=== PATIENT | female | born 1955 | race Caucasian/White ===

== ENCOUNTER 2016-08-13 11:42 | Emergency (ER) | payer OTHER ==
[~2016-08-13] VITALS: Ht 157.5 cm; Wt 90.9 kg
[~2016-08-13 11:42] MED LIST: LISI-586 PO; TRAM50 PO
[2016-08-13 11:44] VITALS: BP 198/80; PULSE 95; RESP 17; TEMP 98.1; O2SAT 98
[2016-08-13] MEDS ORDERED: LISI-586 PO (13:26)
[2016-08-13] MEDS ORDERED: ROBA500T PO (13:26)
[2016-08-13] MEDS ORDERED: IBUP800T23 PO (13:26)
--- NOTE | 2016-08-13 13:26 | PD ---
HPI Chief Complaint: Back/ Neck Pain or Injury Time Seen by Provider: 13:23 Travel History International Travel<30 days: No Contact w/Intl Traveler<30days: No Traveled to known affect area: No History of Present Illness HPI 60-year-old female presents to the emergency department with complaint of left lower back pain since yesterday. She has history of chronic low back pain and her symptoms are similar to past exacerbations. She denies injury, fall, strain. She did some work at work that she thinks may have exacerbated her back pain. She denies encopresis, incontinence, saddle anesthesias. Denies paresthesias, loss of sensation, decreased range of motion, decreased strength to all extremities. Denies fever, chills, nausea, vomiting. Denies urinary symptoms. Denies IV drug use. Denies cancer. Took ibuprofen with some relief of pain. Has not taken any other medications or tried any other treatments to alleviate her symptoms. Has history of hypertension. Has been out of her blood pressure Medication for a couple months secondary to losing her insurance. She does have an appointment with Dr. Gr mid August. Says her blood pressure has been high for the past couple months after running out of her medication. Denies chest pain, headache, confusion, blurred vision, nausea, vomiting, shortness of breath. No known allergies. No other modifying factors or associated signs and symptoms. PFSH Past Medical History Cardiovascular Problems: Yes (HYPERTENSION) Diabetes: No Diminished Hearing: No Hypertension: Yes Immunizations Current: Yes Menopausal: Yes : 0 Para: 0 Miscarriage: 0 : 0 Past Surgical History Tonsillectomy: Yes Social History Alcohol Use: Yes (socially) Tobacco Use: No Substance Use: No Allergies-Medications (Allergen,Severity, Reaction): Coded Allergies: No Known Allergies (Unverified , 08/13/16) Reported Meds & Prescriptions Reported Meds & Active Scripts Active Zestoretic (Lisinopril-Hctz) 20-12.5 Mg Tab 1 Tab PO DAILY Ibuprofen 800 Mg Tab 800 Mg PO Q6HR PRN Robaxin (Methocarbamol) 500 Mg Tab 500 Mg PO QID PRN Review of Systems Except as stated in HPI: all other systems reviewed are Neg Physical Exam Narrative GENERAL: Well-nourished, well-developed female patient, in no acute distress SKIN: Warm and dry. HEAD: Atraumatic. Normocephalic. EYES: Pupils equal and round. No scleral icterus. No injection or drainage. ENT: Mucosa pink and moist. Airway patent. NECK: Trachea midline. CARDIOVASCULAR: Regular rate. RESPIRATORY: No accessory muscle use. GASTROINTESTINAL: Rounded. MUSCULOSKELETAL: Bilateral lower extremities supple and non-tense with 2+ pedal pulses and sensory intact; with full range of motion and 5/5 strength. Active dorsiflexion and extension of bilateral feet. 2+ DTRs. Bilateral straight leg raise is negative for low back pain. Ambulatory with normal gait. Sitting up in bed at 90. No obvious deformities. No clubbing. No cyanosis. No edema. BACK: No midline point tenderness on palpation of the lumbar spine. Tenderness on palpation of left iliosacral area. No obvious deformities. NEUROLOGICAL: Awake and alert. Oriented 3. No obvious cranial nerve deficits. Motor grossly within normal limits. Normal speech. Moves all extremities. 5/5 strength to all extremities. Sensory intact. PSYCHIATRIC: Appropriate mood and affect; insight and judgment normal. Data Data Last Documented VS Vital Signs Date Time Temp Pulse Resp B/P Pulse Ox O2 Delivery O2 Flow Rate FiO2 08/13/16 11:44 98.1 95 17 198/80 98 Orders Ketorolac Inj (Toradol Inj) (08/13/16 13:30) Orphenadrine Inj (Norflex Inj) (08/13/16 13:30) [facility] Medical Decision Making Medical Screen Exam Complete: Yes Emergency Medical Condition: Yes Medical Record Reviewed: Yes Differential Diagnosis Acute exacerbation of chronic low back pain, hypertension, medication refill, low back strain Narrative Course 60-year-old female with acute exacerbation of chronic low back pain. Denies new or recent injury. Denies encopresis, incontinence, saddle anesthesias. Denies any drug use. Denies cancer. No reproducible tenderness on palpation of midline lumbar spine. Reproducible tenderness to the left iliosacral area. He has history of hypertension and has been out of her medication for a couple months. She is asymptomatic. She hasn't point with her primary care provider, Dr. Gr, in mid August. She has blood pressures elevated in the ER. I will refill her blood pressure medication. Toradol and Norflex administered in the ER. Ibuprofen, Robaxin, Zestoretic prescribed at home. Patient verbalizes understanding and agreement with treatment plan. Patient is medically cleared and stable for discharge. Discussed reasons to return to the emergency department. Instructed patient to follow up with primary care provider. Patient agrees with treatment plan. The patients vital signs are stable and the patient is stable for outpatient follow-up and treatment. Patient discharged home, stable and in no acute distress. Diagnosis Primary Impression: Acute exacerbation of chronic low back pain Additional Impression: Medication refill Referrals: Primary Care Physician Patient Instructions: Acute Low Back Pain (ED), General Instructions, Hypertension (ED), Medication Refill, ED Departure Forms: Tests/Procedures, Work Release Enter return to work date: Aug 16, 2016 Additional Instructions: Tylenol or ibuprofen as directed and as needed for pain Robaxin as prescribed and as needed for muscle spasms Heating pad and/or ice to affected area to reduce pain Avoid aggravating activities; increase activity as tolerated Follow-up with primary care provider Return to emergency department immediately with worsening of symptoms Med/Other Pt SpecificInfo: Prescription(s) given Scripts Lisinopril-Hctz (Zestoretic)20-12.5 Mg Tab1 Tab PO DAILY #30 TAB Ref 0 Prov:Jennifer Coto 08/13/16 Ibuprofen 800 Mg [id number] Mg PO Q6HR PRN (PAIN) #30 TAB Ref 0 Prov:Jennifer Coto 08/13/16 Methocarbamol (Robaxin)500 Mg [id number] Mg PO QID PRN (MUSCLE SPASM) #30 TAB Ref 0 Prov:Jennifer Coto 08/13/16 Disposition: 01 DISCHARGE HOME Condition: Stable Jennifer Coto Aug 13, 2016 13:26
[2016-08-13] MEDS ORDERED: ORPHENADRINE INJ 60 MG/2 ML AMP IM ONE (13:30)
[2016-08-13] MEDS ORDERED: KETOROLAC TROMETHAMINE 60 MG/2 ML (IM) VIAL IM ONE (13:30)
== END 2016-08-13 14:05 | disposition home or self-care (01) ==
LOC: NEPB 11:42
DX: M54.5 Low back pain (principal); I10 Essential (primary) hypertension
CPT/HCPCS: 96372; 99283; J1885; J2360

== ENCOUNTER 2016-09-07 11:44 | Emergency (ER) | payer OTHER ==
[~2016-09-07] VITALS: Ht 160 cm; Wt 95.0 kg
[~2016-09-07 11:44] MED LIST changes: +IBUP800T23 PO; +ROBA500T PO; -TRAM50 PO
[2016-09-07 11:46] VITALS: BP 181/97; PULSE 72; RESP 20; TEMP 97.6; O2SAT 100
[2016-09-07] MEDS ORDERED: HYDR50TA94 PO (11:59)
[2016-09-07] MEDS ORDERED: PERM5CRE11 TOPICAL (12:18)
--- NOTE | 2016-09-07 12:22 | PD ---
HPI Chief Complaint: Skin Problem Time Seen by Provider: 12:16 Travel History International Travel<30 days: No Contact w/Intl Traveler<30days: No Traveled to known affect area: No History of Present Illness HPI 60-year-old female presents to the emergency Department with complaint of an itchy rash all over her body for approximately 2 weeks or more. Denies new lotions, soaps, detergents, environmental exposures. She started using Robaxin about a month ago with development of symptoms approximately 2 weeks after. She was seen by [employer]. and they told her to stop the Robaxin and gave her Atarax for the itching. She stop the Robaxin and started taking Atarax with no relief of symptoms. She thinks her grandson may have a rash and has been itching also. She denies airway edema, stridor, wheezing, shortness of breath, difficulty breathing. Denies fever, chills, nausea, vomiting. Has an appointment with dermatology on September 30. No known allergies. History of hypertension. Primary care provider is Dr. Gr. No other modifying factors or associated signs and symptoms. PFSH Past Medical History Cardiovascular Problems: Yes (HYPERTENSION) Diabetes: No Diminished Hearing: No Hypertension: Yes Immunizations Current: Yes ?: Not Menopausal: Yes : 0 Para: 0 Miscarriage: 0 : 0 Past Surgical History Tonsillectomy: Yes Social History Alcohol Use: Yes (socially) Tobacco Use: No Substance Use: No Allergies-Medications (Allergen,Severity, Reaction): Coded Allergies: No Known Allergies (Unverified , 08/13/16) Reported Meds & Prescriptions Reported Meds & Active Scripts Active Elimite Topical (Permethrin) 5% Cream 1 Applic TOPICAL ONCE Zestoretic (Lisinopril-Hctz) 20-12.5 Mg Tab 1 Tab PO DAILY Ibuprofen 800 Mg Tab 800 Mg PO Q6HR PRN Robaxin (Methocarbamol) 500 Mg Tab 500 Mg PO QID PRN Reported Hydroxyzine HCl 50 Mg Tab 50 Mg PO QID PRN Review of Systems Except as stated in HPI: all other systems reviewed are Neg Physical Exam Narrative GENERAL: Well-nourished, well-developed female patient, in no acute distress; afebrile, nontoxic-appearing SKIN: Warm and dry. Generalized erythremic pimple-like rash to abdomen, back, bilateral upper and lower extremities; some areas appear excoriated. No areas with cellulitic process noted. HEAD: Atraumatic. Normocephalic. EYES: Pupils equal and round. No scleral icterus. No injection or drainage. ENT: Mucosa pink and moist. Airway patent. NECK: Trachea midline. CARDIOVASCULAR: Regular rate. RESPIRATORY: No accessory muscle use. GASTROINTESTINAL: Obese. MUSCULOSKELETAL: No obvious deformities. No clubbing. No cyanosis. No edema. NEUROLOGICAL: Awake and alert. Oriented 3. No obvious cranial nerve deficits. Motor grossly within normal limits. Normal speech. PSYCHIATRIC: Appropriate mood and affect; insight and judgment normal. Data Data Last Documented VS Vital Signs Date Time Temp Pulse Resp B/P Pulse Ox O2 Delivery O2 Flow Rate FiO2 09/07/16 11:46 97.6 72 20 181/97 100 Room Air MDM Medical Decision Making Medical Screen Exam Complete: Yes Emergency Medical Condition: Yes Medical Record Reviewed: Yes Differential Diagnosis Contact dermatitis, scabies, hives Narrative Course 60-year-old female physical exam consistent with possible scabies rash. Afebrile nontoxic appearing. She denies fever, chills, nausea, vomiting. Elimite cream prescribed for home. Patient has appointment scheduled on September 30 with dermatology and I instructed her to follow-up at that appointment. Patient verbalizes understanding and agreement with treatment plan. Patient is medically cleared and stable for discharge. Discussed reasons to return to the emergency department. Instructed patient to follow up with primary care provider. Patient agrees with treatment plan. The patients vital signs are stable and the patient is stable for outpatient follow-up and treatment. Patient discharged home, stable and in no acute distress. Diagnosis Primary Impression: Scabies Referrals: Manager [employer] Primary Care Physician Patient Instructions: General Instructions, Scabies (ED) Departure Forms: Tests/Procedures, Work Release Enter return to work date: Sep 08, 2016 Additional Instructions: Elimite cream as directed; repeat in one week as needed Soaking in cool water or apply cool, wet washcloths to irritated areas to minimize itching Apply anti-itch creams, such as calamine lotion, to relieve pain and itching as needed [id number] antihistamines as needed and as directed to relieve allergic symptoms caused by scabies Wash all pillows, linens, blankets, etc. in hot water and dry in hot dryer Bag and all unwashable linens, Brandon stuffed animals, etc. in a tightly sealed garbage bag for up to 2 weeks Follow-up with parking cashier Follow-up with primary care provider Return to the emergency department immediately with worsening of symptoms Med/Other Pt SpecificInfo: Prescription(s) given Scripts Permethrin Topical (Elimite Topical)5% Cream1 Applic TOPICAL ONCE #1 TUBE Ref 1 Prov:Jennifer Coto 09/07/16 Disposition: 01 DISCHARGE HOME Condition: Stable Jennifer Coto Sep 07, 2016 12:22
== END 2016-09-07 12:37 | disposition home or self-care (01) ==
LOC: NEPB 11:44
DX: B86 Scabies (principal); I10 Essential (primary) hypertension
CPT/HCPCS: 99282

== ENCOUNTER 2016-10-21 09:55 | Emergency (ER) | payer OTHER ==
[~2016-10-21] VITALS: Ht 157.5 cm; Wt 93.0 kg
[~2016-10-21 09:55] MED LIST changes: +HYDR50TA94 PO; +PERM5CRE11 TOPICAL
[2016-10-21 09:56] VITALS: BP 152/78; PULSE 67; RESP 17; TEMP 98.1; O2SAT 98
[2016-10-21] MEDS ORDERED: SODIUM CHLOR 0.9% 1000 ML INJ 1,000 ML IV SCH (10:26)
[2016-10-21 10:27] VITALS: O2SAT 97
[2016-10-21] MEDS ORDERED: SODIUM CHLORIDE 0.9% FLUSH 10 ML FLUSH IV FLUSH PRN (10:30)
[2016-10-21] MEDS ORDERED: ONDANSETRON HCL 4 MG/2 ML VIAL IVP ONE (10:30)
[2016-10-21] MEDS ORDERED: MORPHINE SULFATE 8 MG/ML INJ IV PUSH ONE (10:30)
[2016-10-21] MEDS ORDERED: DICYCLOMINE HCL 10 MG CAP PO ONE (10:30)
[2016-10-21 10:51] LABS: AUTOMATED NEUTROPHIL # 7.3 TH/MM3 (1.8-7.7); BASOPHIL # 0.1 TH/MM3 (0-0.2); BASOPHIL % 0.5 % (0.0-2.0); EOSINOPHIL # 0.3 TH/MM3 (0-0.4); HEMATOCRIT 41.5 % (35.0-46.0); LYMPH % 13.9 % (9.0-44.0); LYMPHOCYTE # 1.4 TH/MM3 (1.0-4.8); MEAN CORPUSCULAR HEMOGLOBIN 30.5 PG (27.0-34.0); MEAN CORPUSCULAR HGB CONC 33.5 % (32.0-36.0); MONO % 8.9 % (0.0-8.0); NEUT % 73.7 % (16.0-70.0); PLATELET COUNT 247 TH/MM3 (150-450); RED BLOOD COUNT 4.55 MIL/MM3 (4.00-5.30); RED CELL DISTRIBUTION WIDTH 13.6 % (11.6-17.2)
--- NOTE | 2016-10-21 10:54 | PD ---
HPI Chief Complaint: GI Complaint Time Seen by Provider: 10:09 Travel History International Travel<30 days: No Contact w/Intl Traveler<30days: No Traveled to known affect area: No History of Present Illness HPI 60-year-old female arrives complaining of sharp abdomen pain since last night. She had diaphoresis last night as well. She reports multiple episodes of bloody diarrhea throughout the course of the night. It is especially painful in the right lower abdomen. She's had no fever or vomiting. No similar prior episode. Last oral intake was grilled cheese. PFSH Past Medical History Cardiovascular Problems: Yes (HYPERTENSION) Diabetes: No Diminished Hearing: No Gastrointestinal Disorders: Yes (GI bleed 09/2016) Hypertension: Yes Immunizations Current: Yes ?: Not Menopausal: Yes : 0 Para: 0 Miscarriage: 0 : 0 Past Surgical History Surgical History: No Previous Surgery Tonsillectomy: Yes Social History Alcohol Use: Yes (socially) Tobacco Use: No Substance Use: No Allergies-Medications (Allergen,Severity, Reaction): Coded Allergies: No Known Allergies (Unverified , 10/21/16) Reported Meds & Prescriptions Reported Meds & Active Scripts Active Lortab (Hydrocodone-Acetaminophen) 5-325 Mg Tab 1 Tab PO Q6H PRN Flagyl (Metronidazole) 500 Mg Tab 500 Mg PO TID 10 Days Cipro (Ciprofloxacin HCl) 500 Mg Tab 500 Mg PO BID 10 Days Zestoretic (Lisinopril-Hctz) 20-12.5 Mg Tab 1 Tab PO DAILY Review of Systems Except as stated in HPI: all other systems reviewed are Neg General / Constitutional: No: Fever Gastrointestinal: Positive: Diarrhea, Abdominal Pain Physical Exam Narrative GENERAL: 60-year-old female well-nourished well-developed SKIN: Focused skin assessment warm/dry. HEAD: Atraumatic. Normocephalic. EYES: Pupils equal and round. No scleral icterus. No injection or drainage. ENT: No nasal bleeding or discharge. Mucous membranes pink and moist. NECK: Trachea midline. No JVD. CARDIOVASCULAR: Regular rate and rhythm. No murmur appreciated. RESPIRATORY: No accessory muscle use. Clear to auscultation. Breath sounds equal bilaterally. GASTROINTESTINAL: Diffuse tenderness. Soft. MUSCULOSKELETAL: No obvious deformities. No clubbing. No cyanosis. No edema. NEUROLOGICAL: Awake and alert. No obvious cranial nerve deficits. Motor grossly within normal limits. Normal speech. PSYCHIATRIC: Appropriate mood and affect; insight and judgment normal. Data Data Last Documented VS Vital Signs Date Time Temp Pulse Resp B/P Pulse Ox O2 Delivery O2 Flow Rate FiO2 10/21/16 12:50 60 20 139/64 98 Room Air 10/21/16 09:56 98.1 Vital signs reviewed Orders Complete Blood Count With Diff (10/21/16 10:26) Comprehensive Metabolic Panel (10/21/16 10:26) Lipase (10/21/16 10:26) Lactic Acid (10/21/16 10:26) Ct Abd/Pel W Iv Contrast(Rout) (10/21/16 10:26) Iv Access Insert/Monitor (10/21/16 10:26) Ecg Monitoring (10/21/16 10:26) Oximetry (10/21/16 10:26) Ondansetron Inj (Zofran Inj) (10/21/16 10:30) Sodium Chlor 0.9% 1000 Ml Inj (Ns 1000 M (10/21/16 10:26) Sodium Chloride 0.9% Flush (Ns Flush) (10/21/16 10:30) Dicyclomine (Bentyl) (10/21/16 10:30) Morphine Inj (Morphine Inj) (10/21/16 10:30) Urinalysis - C+S If Indicated (10/21/16 11:38) Iohexol 350 Inj (Omnipaque 350 Inj) (10/21/16 12:26) Ciprofloxacin (Cipro) (10/21/16 13:00) Metronidazole (Flagyl) (10/21/16 13:00) Labs Laboratory Tests Test 10/21/16 10/21/16 10:34 11:52 White Blood Count 10.0 TH/MM3 Red Blood Count 4.55 MIL/MM3 Hemoglobin 13.9 GM/DL Hematocrit 41.5 % Mean Corpuscular Volume 91.0 FL Mean Corpuscular Hemoglobin 30.5 PG Mean Corpuscular Hemoglobin 33.5 % Concent Red Cell Distribution Width 13.6 % Platelet Count 247 TH/MM3 Mean Platelet Volume 9.3 FL Neutrophils (%) (Auto) 73.7 % Lymphocytes (%) (Auto) 13.9 % Monocytes (%) (Auto) 8.9 % Eosinophils (%) (Auto) 3.0 % Basophils (%) (Auto) 0.5 % Neutrophils # (Auto) 7.3 TH/MM3 Lymphocytes # (Auto) 1.4 TH/MM3 Monocytes # (Auto) 0.9 TH/MM3 Eosinophils # (Auto) 0.3 TH/MM3 Basophils # (Auto) 0.1 TH/MM3 CBC Comment AUTO DIFF Differential Comment AUTO DIFF CONFIRMED Sodium Level 138 MEQ/L Potassium Level 4.5 MEQ/L Chloride Level 105 MEQ/L Carbon Dioxide Level 26.3 MEQ/L Anion Gap 7 MEQ/L Blood Urea Nitrogen 11 MG/DL Creatinine 0.86 MG/DL Estimat Glomerular Filtration 67 ML/MIN Rate Random Glucose 90 MG/DL Lactic Acid Level 1.3 mmol/L Calcium Level 9.1 MG/DL Total Bilirubin 1.1 MG/DL Aspartate Amino Transf 25 U/L (AST/SGOT) Alanine Aminotransferase 16 U/L (ALT/SGPT) Alkaline Phosphatase 80 U/L Total Protein 7.4 GM/DL Albumin 3.6 GM/DL Lipase 112 U/L Urine Color YELLOW Urine Turbidity HAZY Urine pH 6.5 Urine Specific [place] 1.019 Urine Protein TRACE mg/dL Urine Glucose (UA) NEG mg/dL Urine Ketones NEG mg/dL Urine Occult Blood SMALL Urine Nitrite NEG Urine Bilirubin NEG Urine Urobilinogen LESS THAN 2.0 MG/DL Urine Leukocyte Esterase SMALL Urine RBC 2 /hpf Urine WBC 1 /hpf Urine Squamous Epithelial 3 /hpf Cells Urine Bacteria RARE /hpf Urine Mucus FEW /lpf Microscopic Urinalysis Comment CULT NOT INDICATED MDM Medical Decision Making Medical Screen Exam Complete: Yes Emergency Medical Condition: Yes Medical Record Reviewed: Yes Differential Diagnosis Gastritis, pancreatitis, appendicitis, acute cholecystitis, ascending cholangitis, AAA, perforated viscous, mesenteric ischemia, hepatitis, cystitis, hydronephrosis/hydroureter/nephroureter calculus, mesenteric adenitis, biliary colic Narrative Course CBC & BMP Diagram 10/21/16 10:34 LFTs: normal Lipase: normal LA: 1.3 Last 24 hours Impressions Abdomen/Pelvis CT 10/21/16 1026 Signed Impressions: Service Date/Time: Friday, October 21, 2016 12:11 - CONCLUSION: 1. Descending colon colitis. 2. Sigmoid diverticulosis. 3. Fat containing umbilical hernia. 4. Left renal cyst and nonobstructing left renal calculus. 5. Indeterminate low-density liver lesions are incompletely characterized on this study. Buck Singh MD Liver lesions d/w patient who agrees to follow up with Dr Weir. Return precautions discussed. Cipro/Flagyl/Lortab script. Diagnosis Primary Impression: Colitis Referrals: Ranjeet Gr III, MD call for appointment Additional Instructions: You have a choice when it comes to health care, and we are glad that you chose [facility]. Hopefully, we have met your expectations on today's visit. You are welcome to return to [facility] at any time, as we are committed to meeting the health care needs of our community. Med/Other Pt SpecificInfo: Prescription(s) given Scripts Hydrocodone-Acetaminophen (Lortab)5-325 Mg Tab1 Tab PO Q6H PRN (PAIN SCALE 6 TO 10) #12 TAB Ref 0 Prov:Kyle Nova MD 10/21/16 Metronidazole (Flagyl)500 Mg [id number] Mg PO TID 10 Days Ref 0 Prov:Kyle Nova MD 10/21/16 Ciprofloxacin (Cipro)500 Mg [id number] Mg PO BID 10 Days Ref 0 Prov:Kyle Nova MD 10/21/16 Disposition: 01 DISCHARGE HOME Condition: Stable Kyle Nova MD Oct 21, 2016 10:54
[2016-10-21 10:56] LABS: HEMO FLAGS AUTO DIFF
[2016-10-21 11:12] LABS: ALKALINE PHOSPHATASE 80 U/L (45-117); TOTAL BILIRUBIN ADULT 1.1 MG/DL (0.2-1.0)
[2016-10-21 11:25] LABS: SCAN/DIFF AUTO DIFF CONFIRMED
[2016-10-21 11:28] LABS: ALT (GPT) 16 U/L (10-53); ANION GAP 7 MEQ/L (5-15); BICARBONATE 26.3 MEQ/L (21.0-32.0); BLOOD UREA NITROGEN 11 MG/DL (7-18); CHLORIDE 105 MEQ/L (98-107); GLOMERULAR FILTRATION RATE 67 ML/MIN (>89); SODIUM (NA) 138 MEQ/L (136-145)
[2016-10-21 11:29] LABS: AST (GOT) 25 U/L (15-37); POTASSIUM 4.5 MEQ/L (3.5-5.1)
[2016-10-21 12:22] LABS: BACTERIA, URINE RARE /hpf; BLOOD, URINE SMALL (NEG); COMMENT (UR) CULT NOT INDICATED; CULTURE IF INDICATED CULT NOT INDICATED; GLUCOSE,URINE NEG (NEG); KETONE, URINE NEG (NEG); MUCUS URINE FEW /lpf (OCC); NITRITE,URINE NEG (NEG); PH, URINE 6.5 (5.0-8.5); SQUAMOUS EPITHELIAL CELL URINE 3 /hpf (0-5); URINE COLOR YELLOW (YELLW/STRAW)
[2016-10-21] MEDS ORDERED: IOHEXOL 350 MG/ML 10 ML VIAL (for RAD DIAG) IV ONE (12:26)
--- NOTE | 2016-10-21 12:38 | RADRPT ---
EXAM DATE/TIME: 10/21/2016 12:11 [place] COMPARISON: No previous studies available for comparison. INDICATIONS : Diffuse abdominal pain and bloody stool. IV CONTRAST: 100 cc Omnipaque 350 (iohexol) IV ORAL CONTRAST: No oral contrast ingested. RADIATION DOSE: 15.66 CTDIvol (mGy) MEDICAL HISTORY : Cardiovascular disease. Hypertension. Gastrointestinal bleed. SURGICAL HISTORY : None. ENCOUNTER: Initial ACUITY: 1 day PAIN SCALE: 3/10 LOCATION: Bilateral upper quadrant TECHNIQUE: Volumetric scanning of the abdomen and pelvis was performed. Using automated exposure control and ad justment of the mA and/or kV according to patient size, radiation dose was kept as low as reasonably achievable to obtain optimal diagnostic quality images. FINDINGS: There is a small hiatal hernia identified. There is a low attenuation lesion in the left lobe of the liver lateral segment measuring 1.3 cm which is incompletely characterized on this study. In addition a 5.5 mm low density focus in the right lobe is present, incompletely characterized. Gallbladder, sp mi, pancreas, left adrenal gland unremarkable. There is a small cyst at the lower pole left kidney measuring 1.3 cm and a nonobstructing left lower pole calculus measuring 5.3 mm. Right kidney unremar kable. There is a mass involving the medial limb of the right adrenal gland measuring 2.2 cm on image 23. Atherosclerotic calcifications of the aorta and iliac vessels are seen. Fat containing umbilical hernia. Uterus and ovaries are unremarkable. Diverticulosis of the sigmoid colon is noted. There is circumferential bowel wall thickening involving the descending colon extending from just distal to th e splenic flexure to the sigmoid/descending colon junction at least 25 cm. There is mild adjacent fat stranding. This is characteristic of colitis. Lung bases are clear. Osseous structures are intact. CONCLUSION: 1. Descending colon colitis. 2. Sigmoid diverticulosis. 3. Fat containing umbilical hernia. 4. Left renal cyst and nonobstructing left renal calculus. 5. Indeterminate low-density liver lesions are incompletely characterized on this study. Buck Singh MD on October 21, 2016 at 12:33 Board Certified Radiologist. This report was verified electronically.
[2016-10-21] MEDS ORDERED: CIPR-9 PO (12:47)
[2016-10-21] MEDS ORDERED: HYDR-3533 PO (12:47)
[2016-10-21] MEDS ORDERED: METR-1 PO (12:47)
[2016-10-21 12:50] VITALS: BP 139/64; PULSE 60; RESP 20; O2SAT 98
[2016-10-21] MEDS ORDERED: CIPROFLOXACIN 500 MG TAB PO ONE (13:00)
[2016-10-21] MEDS ORDERED: metroNIDAZOLE 500 MG TAB PO ONE (13:00)
== END 2016-10-21 13:12 | disposition home or self-care (01) ==
LOC: NEPC 09:55
DX: K52.9 Noninfective gastroenteritis and colitis, unspecified (principal); I10 Essential (primary) hypertension; R61 Generalized hyperhidrosis; Z86.79 Personal history of other diseases of the circulatory system; Z87.19 Personal history of other diseases of the digestive system
CPT/HCPCS: 74177; 80053; 81001; 83605; 83690; 85025; 96361; 96374; 96375; 99285; J2270; J2405; J7030; Q9967

== ENCOUNTER 2016-11-14 16:59 | Observation (INO) | payer SELFPAY ==
[~2016-11-14] VITALS: Ht 157.5 cm; Wt 95.0 kg
[2016-11-14] VITALS (9 sets, daily range): BP systolic 144–199; BP diastolic 71–95; PULSE 67–110; RESP 17–20; TEMP 97.5–98.4; O2SAT 96–100
[~2016-11-14 16:59] MED LIST changes: +CIPR-9 PO; +HYDR-3533 PO; -HYDR50TA94 PO; -IBUP800T23 PO; +METR-1 PO; -PERM5CRE11 TOPICAL; -ROBA500T PO
[2016-11-14] MEDS ORDERED: ASPIRIN 325 MG TAB PO ONE (17:15)
[2016-11-14] MEDS ORDERED: LORazepam 2 MG/ML VIAL IV PUSH ONE (17:30)
[2016-11-14 17:41] LABS: AUTOMATED NEUTROPHIL # 4.8 TH/MM3 (1.8-7.7); BASOPHIL % 0.5 % (0.0-2.0); EOSINOPHIL # 0.3 TH/MM3 (0-0.4); EOSINOPHIL % 3.4 % (0.0-4.0); HEMATOCRIT 41.2 % (35.0-46.0); HEMO FLAGS DIFF FINAL; LYMPH % 23.4 % (9.0-44.0); LYMPHOCYTE # 1.8 TH/MM3 (1.0-4.8); MEAN CELL VOLUME 92.8 FL (80.0-100.0); MEAN CORPUSCULAR HEMOGLOBIN 29.9 PG (27.0-34.0); MEAN CORPUSCULAR HGB CONC 32.2 % (32.0-36.0); MONO % 11.5 % (0.0-8.0); NEUT % 61.2 % (16.0-70.0); PLATELET COUNT 246 TH/MM3 (150-450); RED BLOOD COUNT 4.44 MIL/MM3 (4.00-5.30); RED CELL DISTRIBUTION WIDTH 13.5 % (11.6-17.2); WHITE BLOOD COUNT 7.8 TH/MM3 (4.0-11.0)
--- NOTE | 2016-11-14 17:47 | PD ---
HPI Chief Complaint: Cardiac Complaint Time Seen by Provider: 17:43 Travel History International Travel<30 days: No Contact w/Intl Traveler<30days: No Traveled to known affect area: No History of Present Illness HPI 61-year-old female that presents to the ED for evaluation of chest pain. Per patient she's had left-sided chest pain for about an hour ago. Per patient she kind of argument with her daughter and this is what seemed to bring the pain. Per patient the pain is constant. Sharp. It is 8 out of 10. She denies any history of heart disease. She denies ever having chest pain like this before. Per patient she feels somewhat short of breath. Denies any recent travel. No trauma. No fevers chills or sweats. She denies taking anything for this. She came here immediately after the symptoms started. She denies any history of panic attacks. She states that the pain does not radiate. No abdominal pain. Nausea or vomiting. No allergies to medication. No other medical issues at this time. She does have a history of hypertension. PFSH Past Medical History Cardiovascular Problems: Yes (HYPERTENSION) Diabetes: No Diminished Hearing: No Gastrointestinal Disorders: Yes (GI bleed 09/2016) Hypertension: Yes Immunizations Current: Yes Tetanus Vaccination: < 5 Years Influenza Vaccination: Yes Menopausal: Yes : 0 Para: 0 Miscarriage: 0 : 0 Past Surgical History Tonsillectomy: Yes Social History Alcohol Use: No Tobacco Use: No Substance Use: No Allergies-Medications (Allergen,Severity, Reaction): Coded Allergies: No Known Allergies (Unverified , 10/21/16) Reported Meds & Prescriptions Reported Meds & Active Scripts Active Zestoretic (Lisinopril-Hctz) 20-12.5 Mg Tab 1 Tab PO DAILY Review of Systems Except as stated in HPI: all other systems reviewed are Neg Physical Exam Narrative GENERAL: SKIN: Warm and dry. HEAD: Atraumatic. Normocephalic. EYES: Pupils equal and round. No scleral icterus. No injection or drainage. ENT: No nasal bleeding or discharge. Mucous membranes pink and moist. Tongue is midline. No uvula deviation. NECK: Trachea midline. No JVD. CARDIOVASCULAR: Regular rate and rhythm. No murmurs, S3, S4. RESPIRATORY: No accessory muscle use. Clear to auscultation. Breath sounds equal bilaterally. GASTROINTESTINAL: Abdomen soft, non-tender, nondistended. Hepatic and splenic margins not palpable. MUSCULOSKELETAL: Extremities without clubbing, cyanosis, or edema. No obvious deformities. Full range of motion of the upper and lower extremities bilaterally. 2+ pulses bilaterally. NEUROLOGICAL: Awake and alert. No obvious cranial nerve deficits. Motor grossly within normal limits. Five out of 5 muscle strength in the arms and legs. Normal speech. PSYCHIATRIC: Appropriate mood and affect; insight and judgment normal. Data Data Last Documented VS Vital Signs Date Time Temp Pulse Resp B/P Pulse Ox O2 Delivery O2 Flow Rate FiO2 11/14/16 19:05 71 20 161/71 100 Room Air 11/14/16 17:01 98.4 Orders Electrocardiogram (11/14/16 17:13) Basic Metabolic Panel (Bmp) (11/14/16 17:13) Ckmb (Isoenzyme) Profile (11/14/16 17:13) Complete Blood Count With Diff (11/14/16 17:13) Magnesium (Mg) (11/14/16 17:13) Prothrombin Time / Inr (Pt) (11/14/16 17:13) Act Partial Throm Time (Ptt) (11/14/16 17:13) Troponin I (11/14/16 17:13) Chest, Single Ap (11/14/16 17:13) Ecg Monitoring (11/14/16 17:13) Bilateral Bp Monitoring (11/14/16 17:13) Iv Access Insert/Monitor (11/14/16 17:13) Oximetry (11/14/16 17:13) Oxygen Administration (11/14/16 17:13) Aspirin (Aspirin) (11/14/16 17:15) Lorazepam Inj (Ativan Inj) (11/14/16 17:30) Labs Laboratory Tests Test 11/14/16 17:25 White Blood Count 7.8 TH/MM3 Red Blood Count 4.44 MIL/MM3 Hemoglobin 13.3 GM/DL Hematocrit 41.2 % Mean Corpuscular Volume 92.8 FL Mean Corpuscular Hemoglobin 29.9 PG Mean Corpuscular Hemoglobin 32.2 % Concent Red Cell Distribution Width 13.5 % Platelet Count 246 TH/MM3 Mean Platelet Volume 8.9 FL Neutrophils (%) (Auto) 61.2 % Lymphocytes (%) (Auto) 23.4 % Monocytes (%) (Auto) 11.5 % Eosinophils (%) (Auto) 3.4 % Basophils (%) (Auto) 0.5 % Neutrophils # (Auto) 4.8 TH/MM3 Lymphocytes # (Auto) 1.8 TH/MM3 Monocytes # (Auto) 0.9 TH/MM3 Eosinophils # (Auto) 0.3 TH/MM3 Basophils # (Auto) 0.0 TH/MM3 CBC Comment DIFF FINAL Differential Comment Prothrombin Time 10.4 SEC Prothromb Time International 0.9 RATIO Ratio Activated Partial 24.8 SEC Thromboplast Time Sodium Level 140 MEQ/L Potassium Level 4.0 MEQ/L Chloride Level 106 MEQ/L Carbon Dioxide Level 26.6 MEQ/L Anion Gap 7 MEQ/L Blood Urea Nitrogen 16 MG/DL Creatinine 0.97 MG/DL Estimat Glomerular Filtration 58 ML/MIN Rate Random Glucose 97 MG/DL Calcium Level 8.9 MG/DL Magnesium Level 2.3 MG/DL Total Creatine Kinase 79 U/L Troponin I LESS THAN 0.02 NG/ML MDM Medical Decision Making Medical Screen Exam Complete: Yes Emergency Medical Condition: Yes Medical Record Reviewed: Yes Interpretation(s) EKG shows sinus rhythm with no sign of acute ischemia or arrhythmia read by me and attending. CBC & BMP Diagram 11/14/16 17:25 troponin and CKMB negative Last Impressions Chest X-Ray 11/14/16 1713 Signed Impressions: Service Date/Time: Monday, November 14, 2016 17:24 - CONCLUSION: No acute disease. Kurt Roberts MD Differential Diagnosis Chest pain versus acute on chronic chest pain versus a typical chest pain versus ACS versus anxiety versus stress Narrative Course 61-year-old female that presents to the ED for evaluation of chest pain. Patient was properly examined and was found to have signs and symptoms concerning for possible ACS. Labs and imaging ordered. Patient was given aspirin. Patient was also given Ativan as I do believe there may be an anxiety component to this she does appear to be in some distress. Labs and imaging came back essentially unremarkable. Case discussed with my attending who agrees with plan. Patient does have risk factors including age and hypertension with no previous chest pain workup. This was offered to the patient. She agrees to admission to [facility]. Patient was admitted. Procedures EKG Prior to Arrival: No Diagnosis Primary Impression: Chest pain in adult Admitting Information Admitting Physician Requests: Observation Martin Rice November 14, 2016 17:47
[2016-11-14 17:48] LABS: APTT (PATIENT) 24.8 SEC (24.3-30.1); INTERNATIONAL NORMALIZED RATIO 0.9 RATIO; PROTHROMBIN TIME - PATIENT 10.4 SEC (9.8-11.6)
--- NOTE | 2016-11-14 17:49 | RADRPT ---
EXAM DATE/TIME: 11/14/2016 17:24 [facility] COMPARISON: CHEST SINGLE AP, March 01, 2013, 20:07. INDICATIONS : Chest pain sudden onset. MEDICAL HISTORY : Cardiovascular disease. Hypertension. Gastrointestinal bleed. SURGICAL HISTORY : None. ENCOUNTER: Initial ACUITY: 1 day PAIN SCORE: 6/10 LOCATION: Bilateral chest FINDINGS: A single view of the chest demonstrates the lungs to be symmetrically aerated without evidence of mas s, infiltrate or effusion. The cardiomediastinal contours are unremarkable. Osseous structures are intact. CONCLUSION: No acute disease. Kurt Roberts MD on November 14, 2016 at 17:47 Board Certified Radiologist. This report was verified electronically.
[2016-11-14 17:55] LABS: ANION GAP 7 MEQ/L (5-15); BICARBONATE 26.6 MEQ/L (21.0-32.0); BLOOD UREA NITROGEN 16 MG/DL (7-18); CHLORIDE 106 MEQ/L (98-107); GLOMERULAR FILTRATION RATE 58 ML/MIN (>89); MAGNESIUM 2.3 MG/DL (1.5-2.5); SODIUM (NA) 140 MEQ/L (136-145)
[2016-11-14 18:07] LABS: CREATINE KINASE 79 U/L (26-192)
[2016-11-14] MEDS ORDERED: SODIUM CHLORIDE 0.9% FLUSH 10 ML FLUSH IV FLUSH PRN (19:30)
[2016-11-14] MEDS ORDERED: ACETAMINOPHEN/HYDROcodone 325 MG/7.5 MG TAB PO PRN (19:30)
[2016-11-14] MEDS ORDERED: ACETAMINOPHEN 500 MG CPLT PO PRN (19:30)
--- NOTE | 2016-11-14 19:45 | EKG ---
Date Performed: 11/14/2016 Time Performed: 17:15:03 PTAGE: 61 years EKG: Sinus rhythm NORMAL ECG PREVIOUS TRACING : 06/06/2015 12.01 Compared to prior tracing no significant change DOCTOR: Mena Patten Interpretating Date/Time 11/14/2016 19:45:17
[2016-11-14 20:25] LABS: CREATINE KINASE 78 U/L (26-192)
[2016-11-14] MEDS: SODIUM CHLORIDE 0.9% FLUSH 10 ML FLUSH IV FLUSH SCH (21:00)
[2016-11-14 23:58] LABS: CREATINE KINASE 73 U/L (26-192)
[2016-11-15 04:44] VITALS: BP 133/72; PULSE 58; RESP 20; O2SAT 99
[2016-11-15 08:05] VITALS: PULSE 62
[2016-11-15 08:32] VITALS: BP 133/81; PULSE 65; RESP 16; TEMP 97.7; O2SAT 99
[2016-11-15] MEDS ORDERED: REGADENOSON INJ 0.4 MG/5 ML SYR ONE (09:22)
[2016-11-15] MEDS ORDERED: NITROGLYCERIN 0.4 MG SL 25 TABS/BTL SL PRN (09:45)
[2016-11-15] MEDS ORDERED: ONDANSETRON HCL 4 MG/2 ML VIAL IV PRN (09:45)
--- NOTE | 2016-11-15 09:47 | HHI.HP ---
HPI Primary Care Physician Jacque Gr MD Chief Complaint Chest pain History of Present Illness 61-year-old female with history of hypertension presents to the emergency room for further evaluation of chest pain. Onset last evening when arguing with her daughter. Location left anterior chest. Described sharp and pressure. No radiation of pain. Associated symptoms included shortness of breath. No nausea , vomiting, or diaphoresis. Duration has been constant throughout evening. Breathing makes pain worse. No particular movements or position make pain better or worse. Precipitating factors arguing with daughter. Relieving factors unknown. Denies previous chest pain in the past. She has never had formal cardiac testing. Review of Systems General: No fatigue,weakness, fever, chills, recent illness, or change in appetite HEENT: No COSTA, no vision changes CV: As stated above. Denies any current chest pain or pressure. No palpitations or dizziness RESP: No SOB, cough, wheeze, or URI GI: No nausea, vomiting, bowel changes, diarrhea, constipation, pain, distention , or blood in the stool. : No dysuria, urgency, frequency EXT: No lower leg edema, no paraesthesias MS: Chronic back discomfort since July 2016. States she is currently under Workmen's Comp. due to back injury. Back discomfort is unchanged in nature. No change in ROM. NEURO: No change in memory, dizziness, difficulty with balance, LOC, motor/ sensory deficits PSYCH: No anxiety, depression. Endorses recent situational stress regarding arguing with her daughter. SKIN: No rashes, no concerning lesions Past Family Social History Allergies: Coded Allergies: No Known Allergies (Unverified , 10/21/16) Past Medical History Hypertension, GI bleed 09/2016 Past Surgical History Tonsillectomy Reported Medications Active Zestoretic (Lisinopril-Hctz) 20-12.5 Mg Tab 1 Tab PO DAILY Active Ordered Medications Current Medications Medications (Trade) Dose Ordered Sig/Dionicio Route Start Time Stop Time Status Last Admin (Tylenol) 500 mg Q4H PRN PO 11/14/16 19:30 (Victoria 7.5-325 Mg) 1 tab Q4H PRN PO 11/14/16 19:30 11/14/16 19:56 Family History Noncontributory for early onset cardiovascular disease. Social History Known hypertension. No known diabetes or hyperlipidemia. Lifelong nonsmoker. Denies any alcohol or illegal drug use. Reports sedentary lifestyle since injury to her back July 2016. Past cardiac testing No formal cardiac testing. Physical Exam Vital Signs Vital Signs Date Time Temp Pulse Resp B/P Pulse Ox O2 Delivery O2 Flow Rate FiO2 11/15/16 08:32 97.7 65 16 133/81 99 11/15/16 04:44 58 20 133/72 99 11/14/16 23:31 98.0 67 20 158/78 97 11/14/16 23:01 70 11/14/16 21:36 97.5 70 20 193/83 97 11/14/16 21:25 16 11/14/16 19:57 75 20 166/75 96 Room Air 11/14/16 19:55 96 11/14/16 19:05 71 20 161/71 100 Room Air 11/14/16 17:50 81 18 144/75 99 Room Air 11/14/16 17:24 84 11/14/16 17:24 20 98 11/14/16 17:24 99 Room Air 11/14/16 17:24 84 20 173/82 99 Room Air 11/14/16 17:01 98.4 110 17 199/95 99 Physical Exam GENERAL: Alert WN, WD, NAD, pleasant, , obese female HEAD: NC, AT EYES: Sclera clear, conjunctiva without injection, pupils equal and round CV: RRR, without murmur, rub, gallop, no JVD, S1-S2 no S3-S4. RESP: Clear lungs throughout bilateral, no crackles, wheeze, rhonchi, symmetrical chest rise, nonlabored, able to speak in full sentences ABD: Soft, NT, ND, no masses, positive bowel tones, obese BACK: No CVAT, no scoliosis EXT: Pulses +24, no dependent edema MS: Normal tone 4 extremities, nontender, no obvious deformities, full range of motion NEURO: CN II through CN XII grossly intact, motor strength 5/5, gait WNL PSYCH: A+O 3, pleasant affect, appropriate speech, appropriate mood and affect , insight and judgment SKIN: Normal turgor, normal texture, no lesions, no rashes, even hair distribution Laboratory Laboratory Tests Test 11/14/16 11/14/16 11/14/16 17:25 19:30 23:15 White Blood Count 7.8 Red Blood Count 4.44 Hemoglobin 13.3 Hematocrit 41.2 Mean Corpuscular Volume 92.8 Mean Corpuscular Hemoglobin 29.9 Mean Corpuscular Hemoglobin 32.2 Concent Red Cell Distribution Width 13.5 Platelet Count 246 Mean Platelet Volume 8.9 Neutrophils (%) (Auto) 61.2 Lymphocytes (%) (Auto) 23.4 Monocytes (%) (Auto) 11.5 Eosinophils (%) (Auto) 3.4 Basophils (%) (Auto) 0.5 Neutrophils # (Auto) 4.8 Lymphocytes # (Auto) 1.8 Monocytes # (Auto) 0.9 Eosinophils # (Auto) 0.3 Basophils # (Auto) 0.0 CBC Comment DIFF FINAL Differential Comment Prothrombin Time 10.4 Prothromb Time International 0.9 Ratio Activated Partial 24.8 Thromboplast Time Sodium Level 140 Potassium Level 4.0 Chloride Level 106 Carbon Dioxide Level 26.6 Anion Gap 7 Blood Urea Nitrogen 16 Creatinine 0.97 Estimat Glomerular Filtration 58 Rate Random Glucose 97 Calcium Level 8.9 Magnesium Level 2.3 Total Creatine Kinase 79 78 73 Troponin I LESS THAN 0.02 LESS THAN 0.02 LESS THAN 0.02 Result Diagram: 11/14/16 1725 11/14/16 1725 Imaging Last Impressions Myocardial Perfusion Scan Nuc Med 11/15/16 0000 Signed Impressions: Service Date/Time: Tuesday, November 15, 2016 08:53 - CONCLUSION: Normal examination. RISK CATEGORY: Low (<1%% Annual Mortality Rate) Kurt Roberts MD Chest X-Ray 11/14/16 1713 Signed Impressions: Service Date/Time: Monday, November 14, 2016 17:24 - CONCLUSION: No acute disease. Kurt Roberts MD Course EKGs 3 EKGs show normal sinus rhythm, normal axis, with no ST or T-segment changes Assessment and Plan Assessment and Plan #1 Chest painadmitted to chest pain center. Ruled out with 3 sets of cardiac enzymes, EKGs, and monitored overnight. Seen and evaluated by Dr. Alonso Madrid. Chemical stress test ordered. If stress test unremarkable will discharge later this afternoon. Patient is agreeable to plan a care. #2 Hypertensioncontinue lisinopril hydrochlorothiazide Emili Salazar November 15, 2016 09:47
[2016-11-15] MEDS ORDERED: LISINOPRIL 20 MG TAB PO SCH ×2 (11:00)
[2016-11-15] MEDS ORDERED: HYDROCHLOROTHIAZIDE 12.5 MG CAP PO SCH (11:00)
--- NOTE | 2016-11-15 11:06 | RADRPT ---
EXAM DATE/TIME: 11/15/2016 08:53 [facility] COMPARISON: No previous studies available for comparison. INDICATIONS : Left sided chest pain for 1 day. Angina. DOSE: 25.7 mCi Tc99m Myoview at stress. 8.5 mCi Tc99m Myoview at rest. 0.4 mg Lexiscan STRESS SYMPTOMS: Hot and flush. EJECTION FRACTION: > 70% MEDICAL HISTORY : Hypertension. SURGICAL HISTORY : Tonsillectomy. ENCOUNTER: Initial ACUITY: 1 day PAIN SCALE: 8/10 LOCATION: Left chest TECHNIQUE: The patient underwent pharmacologic stress with infusion of prescribed dose. Continuous ECG tracing was monitored during stress. Gated SPECT imaging was performed after stress and conventional SPECT i maging was performed at rest. The examination was performed on a SPECT/CT scanner, both attenuation and non-corrected datasets were reviewed. FINDINGS: DISTRIBUTION: The maximum perfused segment at stress is in the posterior basal wall. PERFUSION STUDY: The pattern of perfusion at stress is within normal limits. GATED STUDY: There is intact wall motion and thickening without hypokinetic or dyskinetic segments. CONCLUSION: Normal examination. RISK CATEGORY: Low (<1% Annual Mortality Rate) Kurt Roberts MD on November 15, 2016 at 11:02 Board Certified Radiologist. This report was verified electronically.
[2016-11-15 11:27] VITALS: BP 140/71; PULSE 63; RESP 16; TEMP 97.7; O2SAT 99
--- NOTE | 2016-11-15 11:37 | HHI.DCPOC ---
Discharge Care Plan Diagnosis: (1) Atypical chest pain (2) Hypertension Goals to Promote Your Health * To prevent worsening of your condition and complications * To maintain your health at the optimal level Directions to Meet Your Goals Take your medications as prescribed Follow your dietary instruction Follow activity as directed Keep your appointments as scheduled Take your immunizations and boosters as scheduled If your symptoms worsen call your PCP, if no PCP go to Urgent Care Center or Emergency Room Smoking is Dangerous to Your Health. Avoid second hand smoke Call the 24-hour hour crisis hotline for domestic abuse at Emili Salazar November 15, 2016 11:37
[2016-11-15] MEDS: SODIUM CHLORIDE 0.9% FLUSH 10 ML FLUSH IV FLUSH SCH (11:44)
--- NOTE | 2016-11-15 13:44 | EKG ---
Date Performed: 11/14/2016 Time Performed: 23:29:08 PTAGE: 61 years EKG: Sinus rhythm WITH FIRST DEGREE AV BLOCK ABNORMAL ECG PREVIOUS TRACING : 11/14/2016 19.40 Since previous tracing, no significant change noted DOCTOR: Alonso Madrid Interpretating Date/Time 11/15/2016 13:43:04
--- NOTE | 2016-11-15 13:44 | EKG ---
Date Performed: 11/14/2016 Time Performed: 19:40:13 PTAGE: 61 years EKG: Sinus rhythm NORMAL ECG NO PREVIOUS TRACING DOCTOR: Alonso Madrid Interpretating Date/Time 11/15/2016 13:43:28
--- NOTE | 2016-11-15 13:45 | TR ---
Date Performed: 11/15/2016 Time Performed: 09:39:34 DOCTOR: Alonso Madrid DRUG LIST: CLINICAL HISTORY: ANGINA REASON FOR TEST: Angina REASON FOR ENDING: OBSERVATION: CONCLUSION: Lexiscan stress test was performed under standard four minute protocol. Radionuclid e was injected one minute prior to ending the test. No electrocardiographic abormalities were present to suggest ischemia. Nuclear imaging and interpretation are pending. COMMENTS:
[2016-11-16] MEDS ORDERED: ASPIRIN 325 MG TAB PO SCH (09:00)
== END 2016-11-15 14:51 | disposition home or self-care (01) ==
LOC: NEPE 16:59 → NEDA 19:25 → NEPGCP 21:32
PROVIDERS: ADMIT Internal Medicine Interventional Cardiology; ATTEND Internal Medicine Interventional Cardiology
DX: R07.89 Other chest pain (principal); R06.02 Shortness of breath; I10 Essential (primary) hypertension
CPT/HCPCS: 71010; 78452; 80048; 82550; 83735; 84484; 85025; 85610; 85730; 93005; 93017; 96374; 99285; A9502; G0378; J2060; J2785